=== PATIENT | female | born 1990 | race Caucasian/White ===

== ENCOUNTER 2018-06-19 05:35 | Day surgery (SDC) | payer BC ==
[~2018-06-19] VITALS: Ht 165.1 cm; Wt 86.2 kg
[2018-06-19 06:18] LABS: HCG,QUAL RESULT NEGATIVE (NEGATIVE)
[2018-06-19] MEDS ORDERED: SEVOFLURANE 15 MIN GAS INH ONE (07:30)
[2018-06-19] MEDS ORDERED: fentaNYL CITRATE/PF 100 MCG/2 ML AMP IVP ONE (07:30)
[2018-06-19] MEDS ORDERED: NS 250 ML IV.SOLN IV ONE (07:30)
[2018-06-19] MEDS ORDERED: DEXAMETHASONE SOD PHOSPHATE 4 MG/ML VIAL IVP ONE (07:30)
[2018-06-19] MEDS ORDERED: LR 1,000 ML IV.SOLN IV ONE (07:30)
[2018-06-19] MEDS ORDERED: NEOSTIGMINE METHYLSULFATE 1 MG/ML, 10 ML VIAL IVP ONE (07:30)
[2018-06-19] MEDS ORDERED: NS IRRIG SOLN 1000 ML IR ONE (07:30)
[2018-06-19] MEDS ORDERED: LIDOCAINE/EPI 1% 1:100000 20 ML VIAL INJ ONE (07:30)
[2018-06-19] MEDS ORDERED: ROCURONIUM BROMIDE 10 MG/ML (ZEMURON) IV ONE (07:30)
[2018-06-19] MEDS ORDERED: EPINEPHrine 1 MG/ML AMP IV ONE (07:30)
[2018-06-19] MEDS ORDERED: PROPOFOL 200MG/ 20ML VIAL (DIPRIVAN) IV ONE (07:30)
[2018-06-19] MEDS ORDERED: GLYCOPYRROLATE 0.2 MG/ML VIAL IJ ONE (07:30)
[2018-06-19] MEDS ORDERED: fentaNYL CITRATE/PF 100 MCG/2 ML AMP IVP PRN ×2 (09:00)
[2018-06-19] MEDS ORDERED: ONDANSETRON HCL 4 MG/2 ML VIAL IVP PRN (09:00)
[2018-06-19] MEDS ORDERED: fentaNYL CITRATE/PF 100 MCG/2 ML AMP ONE (10:06)
[2018-06-19] MEDS ORDERED: IBUPROFEN 600 MG TABLET PO ONE (12:45)
[2018-06-19] MEDS ORDERED: IBUPROFEN 600 MG TABLET ONE (12:52)
[2018-06-19 13:41] VITALS: BP_SYST 116
== END 2018-06-19 13:00 | disposition home or self-care (01) ==
LOC: SMU 05:35 → SDS 05:35
PROVIDERS: ATTEND Otolaryngology
DX: J34.2 Deviated nasal septum (principal); J32.9 Chronic sinusitis, unspecified; J34.89 Other specified disorders of nose and nasal sinuses; Z68.31 Body mass index [BMI] 31.0-31.9, adult; Z88.8 Allergy status to other drugs, medicaments and biological substances
CPT/HCPCS: 30140; 30520; 31255; 31267; 84703; 88305; 88311; J3010; J7120; J0171; J1100; J2704; J2710; J3490; J7050